=== PATIENT | male | born 1950 | race Caucasian/White ===

== ENCOUNTER 2018-12-19 10:19 | Inpatient (IN) ==
[2018-12-19] MEDS ORDERED: *HR* HYDROcodone/Acet 5/325 mg TABLET PO PRN (10:39)
[2018-12-19] MEDS ORDERED: Morphine Sulfate 2 MG/ML SYRINGE IVP PRN (10:39)
[2018-12-19] MEDS ORDERED: CeFAZolin Syr 2,000MG/20 ML 2,000 MG/20 ML SYRINGE IVPB ONE (10:40)
[2018-12-19] MEDS ORDERED: Ringers Solution, Lactated 1,000 ML IVC SCH (10:45)
[2018-12-19] MEDS ORDERED: *HR* Midazolam HCl 2 MG/2 ML VIAL ONE (11:06)
[2018-12-19] MEDS ORDERED: *HR* Propofol 200 MG/20 ML VIAL IVP ONE ×2 (11:06→12:44)
[2018-12-19] MEDS ORDERED: *HR* FentaNYL (PF) 100 MCG/2 ML VIAL ONE (11:06)
[2018-12-19] MEDS ORDERED: *HR* Rocuronium Bromide 50 MG/5 ML VIAL ONE (11:09)
[2018-12-19] MEDS ORDERED: Ondansetron 4 MG/2 ML VIAL ONE (11:09)
[2018-12-19] MEDS ORDERED: Dexamethasone 4 MG/ML VIAL ONE (11:09)
[2018-12-19] MEDS ORDERED: Lidocaine/EPI 1:100k 1% 20 ML VIAL ONE (12:16)
[2018-12-19] MEDS ORDERED: Acetaminophen IV 1,000 MG/100 ML INFUS..BTL ONE (12:18)
[2018-12-19] MEDS ORDERED: Neostigmine Methylsulfate 3 MG/3 ML SYRINGE ONE ×2 (12:35→12:37)
[2018-12-19] MEDS ORDERED: Acetaminophen 325 MG TABLET PO PRN (14:02)
[2018-12-19] MEDS: *HR* HYDROcodone/Acet 5/325 mg TABLET PO PRN (15:22)
[2018-12-19] MEDS: cefTRIAXone 2,000 MG in Water for inj. (sterile) 20 ML IVPB SCH (18:34)
[2018-12-19] MEDS: *HR* OxyCODONE Immed Rel 5 MG TABLET PO PRN ×2 (18:38→22:31)
[2018-12-19] MEDS: traZODone 50 MG TABLET PO SCH (22:30)
[2018-12-20] MEDS: cefTRIAXone 2,000 MG in Water for inj. (sterile) 20 ML IVPB SCH (09:42)
[2018-12-20] MEDS: (Ezetimibe 10 MG) PO SCH (09:43)
[2018-12-20] MEDS: *HR* HYDROcodone/Acet 5/325 mg TABLET PO PRN (10:40)
[2018-12-20] MEDS: Aspirin Enteric Coated 325 MG Tablet PO SCH ×2 (14:40→21:25)
[2018-12-20] MEDS: traZODone 50 MG TABLET PO SCH (21:25)
[2018-12-21 04:55] LABS: BUN/Creatinine Ratio 22 (6-26); Blood Urea Nitrogen 20 mg/dL (8-23); Vancomycin,Trough 22 mcg/mL (5-10); eGFR For African Americans > 60 (> 60); eGFR For Non-African Americans > 60 (> 60)
[2018-12-21] MEDS: Aspirin Enteric Coated 325 MG Tablet PO SCH ×2 (08:53→20:29)
[2018-12-21] MEDS: (Ezetimibe 10 MG) PO SCH (08:54)
[2018-12-21] MEDS: cefTRIAXone 2,000 MG in Water for inj. (sterile) 20 ML IVP SCH (08:59)
[2018-12-21] MEDS: *HR* HYDROcodone/Acet 5/325 mg TABLET PO PRN (09:47)
[2018-12-21] MEDS ORDERED: Aminoglycoside Consult 1 EACH MC ONE (16:11)
[2018-12-21] MEDS: traZODone 50 MG TABLET PO SCH (20:29)
[2018-12-22] MEDS: (Ezetimibe 10 MG) PO SCH ×2 (09:08→09:09)
[2018-12-22] MEDS: Aspirin Enteric Coated 325 MG Tablet PO SCH ×2 (09:08→20:57)
[2018-12-22] MEDS: cefTRIAXone 2,000 MG in Water for inj. (sterile) 20 ML IVP SCH (09:08)
[2018-12-22] MEDS: *HR* HYDROcodone/Acet 5/325 mg TABLET PO PRN (09:12)
[2018-12-22] MEDS: Piperacillin/Tazobactam 3.375 GM in 0.9 % Sodium Chloride Mini Bag 100 ML IVPB SCH ×2 (16:12→23:29)
[2018-12-22] MEDS: traZODone 50 MG TABLET PO SCH (20:56)
[2018-12-23] MEDS: Piperacillin/Tazobactam 3.375 GM in 0.9 % Sodium Chloride Mini Bag 100 ML IVPB SCH ×2 (09:22→17:01)
[2018-12-23] MEDS: Aspirin Enteric Coated 325 MG Tablet PO SCH ×2 (09:24→20:31)
[2018-12-23] MEDS: (Ezetimibe 10 MG) PO SCH (09:25)
[2018-12-23] MEDS: *HR* HYDROcodone/Acet 5/325 mg TABLET PO PRN (09:30)
[2018-12-23] MEDS: traZODone 50 MG TABLET PO SCH (21:17)
[2018-12-24] MEDS: Piperacillin/Tazobactam 3.375 GM in 0.9 % Sodium Chloride Mini Bag 100 ML IVPB SCH ×3 (00:07→16:55)
[2018-12-24] MEDS: Aspirin Enteric Coated 325 MG Tablet PO SCH ×2 (08:22→22:28)
[2018-12-24] MEDS: (Ezetimibe 10 MG) PO SCH (08:29)
[2018-12-24] MEDS: *HR* HYDROcodone/Acet 5/325 mg TABLET PO PRN ×2 (08:30→16:54)
[2018-12-24] MEDS: traZODone 50 MG TABLET PO SCH (22:28)
[2018-12-25] MEDS: Piperacillin/Tazobactam 3.375 GM in 0.9 % Sodium Chloride Mini Bag 100 ML IVPB SCH ×3 (01:48→15:53)
[2018-12-25] MEDS: (Ezetimibe 10 MG) PO SCH (09:08)
[2018-12-25] MEDS: Aspirin Enteric Coated 325 MG Tablet PO SCH ×2 (09:08→20:32)
[2018-12-25 11:57] LABS: Basophils % 0.8 %; Hematocrit 45.9 % (37.5-50.1); Immature Granulocytes % 0.2 % (0-4); Lymphocytes % 20.2 %; Mean Corpuscular HGB Conc 34.9 g/dL (31.6-35.5); Mean Corpuscular Hemoglobin 30.8 pg (28.0-33.3); Mean Corpuscular Volume 88.4 fL (83.0-100.0); Monocytes # 0.6 K/mcL (0.0-1.3); Monocytes % 11.2 %; Neutrophils # 3.4 K/mcL (1.6-8.9); Platelet Count 174 K/mcL (140-400); Red Blood Count 5.19 M/mcL (4.19-5.50); Red Cell Distribution Width 13.8 % (11.5-14.5); Segmented Neutrophils % 67.6 %
[2018-12-25 12:13] LABS: BUN/Creatinine Ratio 17 (6-26); Blood Urea Nitrogen 18 mg/dL (8-23); C-Reactive Protein 7 mg/L (Less than 10); eGFR For African Americans > 60 (> 60); eGFR For Non-African Americans > 60 (> 60)
[2018-12-25] MEDS: *HR* OxyCODONE Immed Rel 5 MG TABLET PO PRN (15:53)
[2018-12-25] MEDS: *HR* HYDROcodone/Acet 5/325 mg TABLET PO PRN (15:58)
[2018-12-25] MEDS: traZODone 50 MG TABLET PO SCH (22:10)
[2018-12-26] MEDS: Piperacillin/Tazobactam 3.375 GM in 0.9 % Sodium Chloride Mini Bag 100 ML IVPB SCH ×2 (00:37→09:00)
[2018-12-26] MEDS: Aspirin Enteric Coated 325 MG Tablet PO SCH (09:43)
[2018-12-26] MEDS: (Ezetimibe 10 MG) PO SCH (09:51)
[2018-12-26] MEDS: *HR* HYDROcodone/Acet 5/325 mg TABLET PO PRN (09:56)
[2018-12-26 11:41] VITALS: BP 117/76
[2018-12-26] MEDS ORDERED: FLU Vac QV 19-20 (6Month+)/PF 0.5 ML SYRINGE IM ONE (12:01)
== END 2018-12-26 14:40 | DRG 498 ==
LOC: SAMDAY 10:19 → 3NENU 10:19 → 3ANU 13:45 → 3NENU 12-20 16:54
PROVIDERS: ADMIT Orthopaedic Surgery Sports Medicine; ATTEND Orthopaedic Surgery Sports Medicine